=== PATIENT | male | born 1995 | race Asian ===

== ENCOUNTER 2021-08-12 09:20 | Emergency (ER) | payer MEDICAID ==
[~2021-08-12] VITALS: Ht 172.7 cm; Wt 72.6 kg
[2021-08-12 09:52] LABS: MEAN CORPUSCULAR HEMOGLOBIN 32.2 uug (23.8-33.4); MEAN CORPUSCULAR VOLUME 93.9 fL (73.0-96.2); PLATELET COUNT (AUTO) 330 K/uL (152-348)
[2021-08-12] MEDS: TRANEXAMIC ACID 1,000 MG/10 ML VIAL IR ONE ×2 (10:13→11:22)
[2021-08-12] MEDS ORDERED: TRANEXAMIC ACID 1,000 MG/10 ML VIAL ONE (10:17)
[2021-08-12] MEDS ORDERED: BUDE8.43 NS (11:09)
--- NOTE | 2021-08-12 11:32 | NUR ---
Patient discharged to home in stable condition. Written and verbal after care instructions given. Patient verbalizes understanding of instructions. Stressed follow up or return to ER for worsening s/s.nose bleed stopped
[2021-08-12 11:33] VITALS: BP 131/82
== END 2021-08-12 11:33 | disposition home or self-care (01) ==
LOC: ER 09:20
DX: R04.0 Epistaxis (principal); J30.9 Allergic rhinitis, unspecified
CPT/HCPCS: 36415; 85025; A4663